=== PATIENT | female | born 1980 | race African-American/Black ===

== ENCOUNTER 2017-02-26 10:34 | Inpatient (IN) | payer OTHER ==
[~2017-02-26] VITALS: Ht 149.9 cm; Wt 55.2 kg
[2017-02-26] VITALS (644 sets, daily range): BP systolic 104–109; BP diastolic 40–64; PULSE 76–82; TEMP 98.3–99.3; O2SAT 80–100
[2017-02-26 10:52] LABS: BASO % 0.3 % (0.0-2.0); GRAN # 9.3 (1.4-6.5); GRAN % 78.9 % (42.2-75.2); LYMPH % 16.7 % (20.0-51.0); MEAN CELL VOLUME 92 fl (80.0-100.0); MEAN CORPUSCULAR HGB CONC 33 g/dl (33.0-37.0); MEAN PLATELET VOLUME 9.2 fl (7.4-10.4); MONO # 0.4 (0.1-0.6); MONO % 3.5 % (1.7-9.3); PLATELET COUNT 353 K/mm3 (130-400); REDCELL DISTRIBUTION WIDTH-CV 14.5 % (11.5-14.5); WHITE BLOOD COUNT 11.8 K/mm3 (4.8-10.8)
[2017-02-26 11:00] LABS: HEMOGLOBIN 11.2 g/dl (12.5-16.0); MEAN CORPUSCULAR HEMOGLOBIN 30 pg (27.0-31.0)
[2017-02-26 11:09] LABS: ADJUSTED CALCIUM 8.8 mg/dL (8.4-10.2); ALANINE AMINOTRANSFERASE 81 U/L (9-52); ALBUMIN 3.3 gm/dL (3.5-5.0); ALKALINE PHOSPHATASE 51 U/L (50-136); ANION GAP 11 mmol/L (7-16); BILIRUBIN,TOTAL 0.6 mg/dL (0.0-1.0); BLOOD UREA NITROGEN 10 mg/dL (7-17); CALCIUM 8.2 mg/dL (8.4-10.2); CARBON DIOXIDE 18 mmol/L (22-30); CHLORIDE 106 mmol/L (98-107); GLUCOSE 144 mg/dL (74-106); POTASSIUM 3.6 mmol/L (3.4-5.0); SODIUM 136 mmol/L (137-145); TOTAL PROTEIN 5.7 gm/dL (6.4-8.2)
[2017-02-26] MEDS ORDERED: BUSPAR10 MG PO (11:59)
[2017-02-26] MEDS ORDERED: DESYREL 50MG50 MG PO (12:00)
[2017-02-26] MEDS ORDERED: CELEXA 20MG20 MG/TAB PO (12:00)
[2017-02-26 14:44] LABS: HEMATOCRIT 31.1 % (37.0-47.0); HEMOGLOBIN 10.2 g/dl (12.5-16.0)
[2017-02-26 20:27] LABS: HEMATOCRIT 28.3 % (37.0-47.0); HEMOGLOBIN 9.5 g/dl (12.5-16.0)
[2017-02-27] VITALS (1092 sets, daily range): BP systolic 111–124; BP diastolic 53–79; PULSE 79–105; TEMP 97.9–101.1; O2SAT 78–100
[2017-02-27 01:22] LABS: VENOUS BLOOD GAS BE -2.3 (-4-4); VENOUS BLOOD GAS SAO2 66.4 % (60-80); VENOUS BLOOD GAS SITE VENIPUNCTURE
[2017-02-27 01:35] LABS: BASO % 0.2 % (0.0-2.0); GRAN # 5.6 (1.4-6.5); GRAN % 68.3 % (42.2-75.2); LYMPH # 1.8 (1.2-3.4); LYMPH % 22.3 % (20.0-51.0); MEAN CELL VOLUME 93 fl (80.0-100.0); MEAN CORPUSCULAR HGB CONC 32 g/dl (33.0-37.0); MEAN PLATELET VOLUME 9.4 fl (7.4-10.4); MONO # 0.7 (0.1-0.6); MONO % 9.1 % (1.7-9.3); PLATELET COUNT 273 K/mm3 (130-400); REDCELL DISTRIBUTION WIDTH-CV 14.6 % (11.5-14.5); WHITE BLOOD COUNT 8.2 K/mm3 (4.8-10.8)
[2017-02-27 01:36] LABS: HEMATOCRIT 27.8 % (37.0-47.0); MEAN CORPUSCULAR HEMOGLOBIN 30 pg (27.0-31.0)
[2017-02-27 01:48] LABS: ADJUSTED CALCIUM 8.7 mg/dL (8.4-10.2); ALANINE AMINOTRANSFERASE 212 U/L (9-52); ALKALINE PHOSPHATASE 45 U/L (50-136); ANION GAP 3 mmol/L (7-16); BILIRUBIN,TOTAL 0.6 mg/dL (0.0-1.0); BLOOD UREA NITROGEN 8 mg/dL (7-17); CALCIUM 7.9 mg/dL (8.4-10.2); CARBON DIOXIDE 25 mmol/L (22-30); CHLORIDE 105 mmol/L (98-107); CREATININE, serum 0.63 mg/dL (0.52-1.25); GLUCOSE 95 mg/dL (74-106); POTASSIUM 3.9 mmol/L (3.4-5.0); SODIUM 133 mmol/L (137-145); TOTAL PROTEIN 5.2 gm/dL (6.4-8.2)
[2017-02-27 05:06] LABS: ACETAMINOPHEN < 10 ug/mL (10-30)
[2017-02-27 08:35] LABS: PH 6 (5-8); SQUAMOUS EPITHELIAL 0-2 /hpf; URINE APPEARANCE Clear; URINE BACTERIA None Seen /hpf; URINE BILIRUBIN Negative (NEGATIVE); URINE BLOOD Negative (NEGATIVE); URINE COLOR Yellow; URINE GLUCOSE Negative (NEGATIVE); URINE KETONE 1+ (NEGATIVE); URINE RBC 0-2 /hpf; URINE UROBILINOGEN Negative (NEGATIVE); URINE WBC 0-2 /hpf
[2017-02-27 18:30] LABS: HEMATOCRIT 28.1 % (37.0-47.0); HEMOGLOBIN 9.3 g/dl (12.5-16.0)
[2017-02-28] VITALS (393 sets, daily range): BP systolic 113–131; BP diastolic 61–71; PULSE 99–106; TEMP 97.6–101.1; O2SAT 92–100
[2017-02-28 04:22] LABS: HEMATOCRIT 25.3 % (37.0-47.0); HEMOGLOBIN 8.4 g/dl (12.5-16.0)
[2017-02-28 18:56] LABS: HEMATOCRIT 26.3 % (37.0-47.0); HEMOGLOBIN 8.6 g/dl (12.5-16.0)
[2017-03-01] VITALS (7 sets, daily range): BP systolic 97–114; BP diastolic 30–68; PULSE 51–106; TEMP 97.6–101.8
[2017-03-01 09:16] LABS: BASO % 0.2 % (0.0-2.0); EOS # 0.1 (0.0-0.7); EOS % 0.7 % (0-4.0); GRAN # 8.7 (1.4-6.5); GRAN % 80.9 % (42.2-75.2); LYMPH # 1.2 (1.2-3.4); LYMPH % 10.8 % (20.0-51.0); MEAN CELL VOLUME 91 fl (80.0-100.0); MEAN CORPUSCULAR HGB CONC 32 g/dl (33.0-37.0); MEAN PLATELET VOLUME 9.4 fl (7.4-10.4); MONO # 0.7 (0.1-0.6); MONO % 6.7 % (1.7-9.3); PLATELET COUNT 315 K/mm3 (130-400); RED BLOOD COUNT 2.83 M/mm3 (4.10-5.30); REDCELL DISTRIBUTION WIDTH-CV 14.6 % (11.5-14.5); WHITE BLOOD COUNT 10.7 K/mm3 (4.8-10.8)
[2017-03-01 09:27] LABS: HEMATOCRIT 25.8 % (37.0-47.0); HEMOGLOBIN 8.3 g/dl (12.5-16.0); MEAN CORPUSCULAR HEMOGLOBIN 29 pg (27.0-31.0)
[2017-03-02] VITALS (7 sets, daily range): BP systolic 98–126; BP diastolic 46–71; PULSE 90–103; TEMP 98.2–99.5
[2017-03-02 08:53] LABS: MEAN CELL VOLUME 92 fl (80.0-100.0); MEAN CORPUSCULAR HGB CONC 33 g/dl (33.0-37.0); MEAN PLATELET VOLUME 8.9 fl (7.4-10.4); RED BLOOD COUNT 3.07 M/mm3 (4.10-5.30); REDCELL DISTRIBUTION WIDTH-CV 14.6 % (11.5-14.5); WHITE BLOOD COUNT 9.4 K/mm3 (4.8-10.8)
[2017-03-02 09:02] LABS: HEMATOCRIT 28.3 % (37.0-47.0); HEMOGLOBIN 9.2 g/dl (12.5-16.0); MEAN CORPUSCULAR HEMOGLOBIN 30 pg (27.0-31.0); PLATELET COUNT 419 K/mm3 (130-400)
[2017-03-02 09:07] LABS: ADJUSTED CALCIUM 9.3 mg/dL (8.4-10.2); ALBUMIN 3.7 gm/dL (3.5-5.0); BILIRUBIN,TOTAL 0.8 mg/dL (0.0-1.0); CALCIUM 9.1 mg/dL (8.4-10.2); CREATININE, serum 0.51 mg/dL (0.52-1.25); POTASSIUM 4.4 mmol/L (3.4-5.0); TOTAL PROTEIN 6.9 gm/dL (6.4-8.2)
[2017-03-03 02:32] VITALS: BP 103/56; PULSE 97; TEMP 98.2
[2017-03-03 05:41] VITALS: BP 111/55; PULSE 97; TEMP 98.3
[2017-03-03 10:36] VITALS: BP 116/63; PULSE 87; TEMP 98.2
[2017-03-03 13:47] VITALS: BP 119/69; PULSE 88; TEMP 98.2
== END 2017-03-03 16:45 | DRG 964 ==
LOC: COL.ER 10:34 → EDBD 10:35 → COL.ER 10:35 → SURG 12:01 → ICU 12:01 → SURG 02-28 16:30
PROVIDERS: Emergency Medicine; Internal Medicine Pulmonary Disease; Psychiatry & Neurology Psychiatry; Surgery
PROC: 0W9930Z Drainage of Right Pleural Cavity with Drainage Device, Percutaneous Approach (ICD-10-PCS; principal; 2017-02-26)
DX: S27.2XXA Traumatic hemopneumothorax, initial encounter (principal); F33.2 Major depressive disorder, recurrent severe without psychotic features; S36.112A Contusion of liver, initial encounter; F40.01 Agoraphobia with panic disorder
CPT/HCPCS: 90791-AI; J0690; J2250; J2270; J3010; J7030; J7120; Q9967

== ENCOUNTER 2019-06-25 10:03 | Emergency (ER) | payer OTHER ==
[~2019-06-25] VITALS: Ht 149.9 cm; Wt 67.3 kg
[~2019-06-25 10:03] MED LIST: ATARAX 25MG25 MG/TAB PO; ATIVAN 0.50.5 MG/TAB PO; BUSPAR10 MG PO; CELEXA 20MG20 MG/TAB PO; DESYREL 50MG50 MG PO
[2019-06-25 10:05] VITALS: BP 132/70; TEMP 98.3
[2019-06-25 11:12] VITALS: PULSE 73
== END 2019-06-25 11:18 | disposition home or self-care (01) ==
LOC: COL.ER 10:03
DX: S93.401A Sprain of unspecified ligament of right ankle, initial encounter (principal); F32.9 Major depressive disorder, single episode, unspecified; W00.0XXA Fall on same level due to ice and snow, initial encounter

== ENCOUNTER 2019-11-22 23:13 | Emergency (ER) | payer OTHER ==
[~2019-11-22] VITALS: Ht 149.9 cm; Wt 67.3 kg
[2019-11-22 23:14] VITALS: TEMP 99.1
[2019-11-22] MEDS ORDERED: LEXAPRO20 MG PO (23:18)
[2019-11-23 01:21] VITALS: BP 131/90; PULSE 58
== END 2019-11-23 02:00 | disposition home or self-care (01) ==
LOC: COL.ER 23:13
DX: S01.01XA Laceration without foreign body of scalp, initial encounter (principal); Z23 Encounter for immunization; W01.190A Fall on same level from slipping, tripping and stumbling with subsequent striking against furniture, initial encounter

== ENCOUNTER → 2019-12-04 | Outpatient (CLI) | payer OTHER ==
[~2019-12-04] MED LIST changes: +LEXAPRO20 MG PO
[2019-12-04 14:12] VITALS: PULSE 70; TEMP 98.7
== END ==
LOC: COL.ER 13:59
DX: Z48.02 Encounter for removal of sutures (principal)